=== PATIENT | female | born 1975 | race Two or more races ===

== ENCOUNTER 2017-09-13 16:21 | Emergency (ER) | payer SELFPAY | END 2017-09-13 16:55 | disposition left against medical advice (07) | LOC: ER 16:21 | DX: O26.891 Other specified pregnancy related conditions, first trimester (principal); Z3A.12 12 weeks gestation of pregnancy; Z53.21 Procedure and treatment not carried out due to patient leaving prior to being seen by health care provider ==

== ENCOUNTER → 2019-03-10 | Outpatient (CLI) | payer OTHER ==
[2019-03-10] MEDS: GADOTERATE 7.5 MMOL/15ML VIAL. IVP ONE (12:02)
--- NOTE | 2019-03-10 17:02 | RAD ---
MRI study of the pelvis with and without contrast Clinical indications: Pelvic pain. Ovarian cyst. TECHNIQUE: Pre and postcontrast enhanced MRI sequences of the pelvis were performed in axial and coronal and sagittal planes. A total of 13 ml of Dotarem was given intravenously. COMPARISON: None available. FINDINGS: The uterus is anteverted in position. The junctional zone is homogeneous and similar in caliber throughout measuring less than 10 mm in thickness. Small increased T2 round areas are seen within the posterior myometrium of the uterus on the T2 sagittal sequence. This may represent mild adenomyosis here. The endometrial canal measures 11 mm in thickness which is normal. No endometrial canal mass is seen. No uterine fibroid is seen. The uterine cervix is normal. The vaginal vault and vulva are unremarkable. The urinary bladder wall is smooth and no intraluminal echodensities or masses are seen. Multiple follicular cysts of the right ovary are seen. The largest measures 15 mm. Multiple follicular cysts of the left ovary are seen. The largest measures 9 mm. Small amount of physiologic free fluid is seen within the cul-de-sac. No adnexal mass is evident. No enlarged pelvic lymphadenopathy is seen. IMPRESSION: Mild adenomyosis of the posterior lower uterine body. Bilateral follicular ovarian cysts. Electronically signed by: Chidi Olmstead MD (03/10/2019 4:59 PM) [facility]
== END | disposition home or self-care (01) ==
LOC: MRI 10:49
PROVIDERS: ATTEND Family Medicine
DX: N80.0 Endometriosis of uterus (principal); N83.01 Follicular cyst of right ovary; N83.02 Follicular cyst of left ovary
CPT/HCPCS: 72197; A9575